=== PATIENT | male | born 1990 | race Caucasian/White ===

== ENCOUNTER 2021-03-22 18:26 | Emergency (ER) | payer OTHER ==
[~2021-03-22] VITALS: Ht 175.3 cm; Wt 72.6 kg
[2021-03-22 19:48] VITALS: BP 127/77
[2021-03-22] MEDS ORDERED: NALO4SPR NS (19:58)
== END 2021-03-22 20:04 | disposition home or self-care (01) ==
LOC: ER 18:29
DX: F11.20 Opioid dependence, uncomplicated (principal)